=== PATIENT | female | born 1980 | race Caucasian/White ===

== ENCOUNTER → 2022-08-22 07:43 | Outpatient (CLI) | payer OTHER, SELFPAY ==
[2022-08-22 09:20] LABS: Chloride 103 mmol/L (98-107); Potassium 4.1 mmoL/L (3.5-5.1); Sodium 139 mmol/L (136-145)
[2022-08-22 09:22] LABS: Alanine Aminotransferase 17 U/L (12-78); Alkaline Phosphatase 74 U/L (38-126); Aspartate Amino Transferase 21 U/L (14-36); Bilirubin,Total 0.2 mg/dl (0.2-1.3); Blood Urea Nitrogen 14 mg/dl (7-17); Estimated Glomerular Filt Rate 93 ml/min (>60); GFR (African American) 113 ML/MIN (>60)
[2022-08-22 09:23] LABS: Albumin Level 3.5 g/dl (3.5-5.0); Albumin/Globulin Ratio 1.2 (1.1-1.8); Anion Gap 12.1 mEq/L (5-15); Calcium 9.1 mg/dl (8.4-10.2); Carbon Dioxide 28 mmol/L (22.0-30.0); Chol/HDL Ratio 3.6 (1-3.5); Cholesterol 161 mg/dl (140-200); Globulin 2.9 g/dL (1.3-3.2); Glucose 92 mg/dl (74-100); HDL Cholesterol 45 mg/dl (40-60); Total Protein,Serum 6.4 g/dl (6.3-8.2); Triglycerides 126 mg/dl (30-150); VLDL Cholesterol 25 mg/dL (0-40)
[2022-08-22 09:34] LABS: Direct LDL Cholesterol 96.49 mg/dL (100-129)
[2022-08-22 09:53] LABS: Thyroid Stimulating Hormone 3.07 uIU/mL (0.465-4.68)
== END ==
PROVIDERS: PCP Family Medicine; Visit Provider Family Medicine
DX: I10 Essential (primary) hypertension (principal); E66.9 Obesity, unspecified; Z68.38 Body mass index [BMI] 38.0-38.9, adult
CPT/HCPCS: 36415; 80053; 80061; 84443